=== PATIENT | female | born 1985 | race Caucasian/White ===

== ENCOUNTER 2017-04-20 12:05 | Emergency (ER) | payer OTHER ==
[~2017-04-20] VITALS: Ht 160 cm; Wt 58.2 kg
[~2017-04-20 12:05] MED LIST: ASTN; BCPILLS PO; FLUT0.15 NAE
[2017-04-20 12:08] VITALS: TEMP 36.7; Ht 160 cm; Wt 58.2 kg
--- NOTE | 2017-04-20 12:19 | EMERGENCY ROOM VISIT NOTE ---
ED Visit Note First contact with patient: 12:11 CHIEF COMPLAINT: Finger injury HISTORY OF PRESENT ILLNESS: This 31-year-old female patient presents to the emergency department ambulatory after injuring the left fifth finger chopping wood yesterday and her finger got smashed between the hatchet handle and a rock. There was no audible snap or crack at that time. The patient rates the pain as moderate and 3/10. The patient is not a to straighten or flex the finger well and it is painful. No numbness or tingling. No lacerations. No other injuries. The patient has not had previous injury to this finger. The patient has taken nothing for the pain. REVIEW OF SYSTEMS: A 6 system review of systems was completed with positives and pertinent negatives in the HPI. ALLERGIES: No known allergies MEDICATIONS: control pills PMH: Patient denies SOCIAL HISTORY: The patient lives locally. She does not smoke PHYSICAL EXAM: Vital Signs: Reviewed Nurse's notes, vital signs stable. GENERAL : Is a 31-year-old female, in no acute distress, but appears to be in pain, well -developed, well-nourished. MUSCULOSKELETAL: There is no obvious deformity of the left fifth finger. There is ecchymosis and edema. There are a few superficial abrasions. The patient is not able to extend or flex it well because of the pain. The DIP joint is maximally tender and extension and flexion is intact but painful. The MCP joint is nontender. There is no obvious ligamentous instability. There is no laceration but several superficial, nonbleeding abrasions. Capillary refill less than 2 seconds. No tenderness of the remaining fingers or hand. Full range of motion of the wrist. NEURO: Alert and oriented to person, place, and time. Normal sensation to light and sharp touch. EMERGENCY DEPARTMENT COURSE: I examined the patient. An x-ray of the left fifth finger was reviewed by myself and radiology and showed distal phalanx fracture. The finger was immobilized by emergency department alarm installation technician under my direction and the position was satisfactory. Neurovascular status rechecked and intact. The patient was discharged home in good condition. DIAGNOSIS: Left fifth finger fracture DISCHARGE INSTRUCTIONS: Ice and elevation for 24-48 hrs. Ibuprofen 600 mg every 6 hrs as needed for pain. Wear the splint until seen by orthopedics. Contact their office Friday to schedule a follow-up. Return with any worsening symptoms. LEFT FIFTH FINGER RADIOGRAPHS CLINICAL HISTORY: Left fifth finger pain following injury. COMPARISON: None FINDINGS: There is a minimally displaced fracture within the mid dorsal aspect of the distal phalanx of the left fifth finger. No additional fractures are identified on this exam. Alignment is anatomic. A ring on the fourth finger is noted. IMPRESSION: Minimally displaced fracture of the distal phalanx of the left fifth finger. Current/Historical Medications Scheduled Control Pills ( Control Pills), 1 TAB PO DAILY Allergies Coded Allergies: No Known Allergies (Unverified , 04/20/17) Vital Signs Date Time Temp Pulse Resp B/P Pulse Ox O2 Delivery O2 Flow Rate FiO2 04/20/17 13:27 82 16 110/64 99 04/20/17 12:08 36.7 97 20 112/64 100 Room Air Departure Information Impression Primary Impression: Finger fracture Dispostion Home / Self-Care Condition GOOD Referrals No Doctor, Assigned (PCP) Afshin Arzola, DO Patient Instructions ED Fx Finger Closed, [facility] Additional Instructions Ice and elevation for 24-48 hrs. Ibuprofen 600 mg every 6 hrs as needed for pain. Wear the splint until seen by orthopedics. Contact their office Friday to schedule a follow-up. Return with any worsening symptoms. Problem Qualifiers Primary Impression: Finger fracture Encounter type: initial encounter Finger: little finger Fracture type: closed Phalanx: distal Laterality: left
--- NOTE | 2017-04-20 12:46 | DIAGNOSTIC IMAGING REPORT ---
LEFT FIFTH FINGER RADIOGRAPHS CLINICAL HISTORY: Left fifth finger pain following injury. COMPARISON: None FINDINGS: There is a minimally displaced fracture within the mid dorsal aspect of the distal phalanx of the left fifth finger. No additional fractures are identified on this exam. Alignment is anatomic. A ring on the fourth finger is noted. IMPRESSION: Minimally displaced fracture of the distal phalanx of the left fifth finger. Electronically signed by: Efrain Buenrostro M.D. 04/20/2017 12:45 PM Dictated Date/Time: 04/20/2017 12:43 PM
[2017-04-20 13:27] VITALS: BP 110/64; PULSE 82; O2SAT 99
== END 2017-04-20 13:28 | disposition home or self-care (01) ==
LOC: C.EDB 12:06 → C.EDD 13:28
DX: S62.637A Displaced fracture of distal phalanx of left little finger, initial encounter for closed fracture (principal); W23.0XXA Caught, crushed, jammed, or pinched between moving objects, initial encounter; Y92.89 Other specified places as the place of occurrence of the external cause; Z79.3 Long term (current) use of hormonal contraceptives